=== PATIENT | male | born 1960 | race Caucasian/White ===

== ENCOUNTER 2018-04-23 15:13 | Outpatient (CLI) | payer BC ==
[~2018-04-23 15:13] MED LIST: ESCI20TA29 PO; PANT40TA39 PO
[2018-04-23 15:50] LABS: BASOPHILS % (AUTO) 0.5 % (0-1); EOSINOPHILS # (AUTO) 0.2 X10'3 (0-0.9); EOSINOPHILS % (AUTO) 2.9 % (0-6); HEMATOCRIT 48.3 % (42.0-52.0); HEMOGLOBIN 15.9 g/dl (14.0-17.9); LYMPHOCYTES # (AUTO) 1.1 X10'3 (1.1-4.8); LYMPHOCYTES % (AUTO) 18.9 % (21-51); MEAN CORPUSCULAR HEMOGLOBIN 31.1 PG (27.0-31.0); MEAN CORPUSCULAR HGB CONC 32.9 % (33.0-36.5); MEAN CORPUSCULAR VOLUME 94.5 FL (78-98); MEAN PLATELET VOLUME 7.1 FL (7.4-10.4); MONOCYTES # (AUTO) 0.4 X10'3 (0-0.9); MONOCYTES % (AUTO) 7.2 % (2-12); NEUTROPHILS % (AUTO) 70.5 % (42-75); PLATELET COUNT 259 X10'3 (140-440); RED BLOOD COUNT 5.11 X10'6 (4.70-6.10); RED CELL DISTRIBUTION WIDTH 13.9 % (11.5-14.5); WHITE BLOOD COUNT 5.7 X10'3 (4.5-11.0)
[2018-04-23 16:05] LABS: ALANINE AMINOTRANSFERASE 53 U/L (12-78); ALBUMIN 3.9 G/DL (3.4-5.0); ALKALINE PHOSPHATASE 67 IU/L (46-116); ANION GAP 8 (8-16); ASPARTATE AMINO TRANSFERASE 31 U/L (10-37); BILIRUBIN,TOTAL 0.5 MG/DL (0.1-1.0); BLOOD UREA NITROGEN 15 MG/DL (7-18); BUN/CREATININE RATIO 16.9 (5.4-32.0); CALCIUM 9.7 MG/DL (8.5-10.1); CHLORIDE 104 MMOL/L (99-107); CREATININE 0.89 MG/DL (0.60-1.10); GLUCOSE 91 MG/DL (70-104); POTASSIUM 4.5 MMOL/L (3.5-5.1); SODIUM 140 MMOL/L (135-145); TOTAL CARBON DIOXIDE 28.1 MMOL/L (24-32); TOTAL PROTEIN 7.7 G/DL (6.4-8.2); eGFR 88 ML/MIN
[2018-04-23 16:33] LABS: PARTIAL THROMBOPLASTIN TIME 30 SECONDS (22-32); PROTHROMBIN TIME 10.6 SECONDS (9.0-12.0)
== END 2018-04-23 23:59 | disposition home or self-care (01) ==
LOC: LAB 15:13
PROVIDERS: ATTEND Otolaryngology
DX: D69.1 Qualitative platelet defects (principal); I10 Essential (primary) hypertension; Z87.891 Personal history of nicotine dependence; Z72.89 Other problems related to lifestyle; Z98.890 Other specified postprocedural states; Z85.818 Personal history of malignant neoplasm of other sites of lip, oral cavity, and pharynx
CPT/HCPCS: 36415; 80053; 85025; 85576; 85610; 85730

== ENCOUNTER 2022-04-22 07:48 | Day surgery (SDC) | payer BC ==
[2022-04-22] VITALS (9 sets, daily range): BP systolic 96–114; BP diastolic 40–64
[~2022-04-22] VITALS: Ht 172.7 cm; Wt 93.8 kg
[2022-04-22] MEDS ORDERED: ceFAZolin inj. 2,000 MG in dextrose 5%-water 100 ML IV ONE (08:16)
[2022-04-22] MEDS ORDERED: vancomycin 1,500 MG in NS 300ml IV soln IV ONE (08:16)
[2022-04-22] MEDS ORDERED: NITR0.4T51 SL (08:36)
[2022-04-22] MEDS ORDERED: FLO0.4C PO (08:36)
[2022-04-22] MEDS ORDERED: LEVO75TA7 PO (08:36)
[2022-04-22] MEDS ORDERED: CLOP75TA34 PO (08:36)
[2022-04-22] MEDS ORDERED: SERT-434 PO (08:36)
[2022-04-22] MEDS ORDERED: LORA-269 PO (08:36)
[2022-04-22] MEDS ORDERED: ATOR20TA66 PO (08:36)
[2022-04-22] MEDS ORDERED: [UNRECOGNIZED DRUG - OTHER] PO (08:36)
[2022-04-22 08:59] LABS: BASOPHILS # (AUTO) 0.1 X10'3 (0-0.2); BASOPHILS % (AUTO) 1.1 % (0-1); EOSINOPHILS # (AUTO) 0.3 X10'3 (0-0.9); EOSINOPHILS % (AUTO) 4.8 % (0-6); HEMATOCRIT 46.5 % (42.0-52.0); HEMOGLOBIN 15.5 g/dl (14.0-17.9); LYMPHOCYTES # (AUTO) 1.1 X10'3 (1.1-4.8); LYMPHOCYTES % (AUTO) 15.9 % (21-51); MEAN CORPUSCULAR HEMOGLOBIN 30.3 PG (27.0-31.0); MEAN CORPUSCULAR HGB CONC 33.3 g/dL (33.0-36.5); MEAN CORPUSCULAR VOLUME 91.1 FL (78-98); MEAN PLATELET VOLUME 7.7 FL (7.4-10.4); MONOCYTES # (AUTO) 0.6 X10'3 (0-0.9); NEUTROPHILS # (AUTO) 4.8 X10'3 (1.8-7.7); NEUTROPHILS % (AUTO) 69.2 % (42-75); PLATELET COUNT 150 X10'3 (140-440); RED CELL DISTRIBUTION WIDTH 13.6 % (11.5-14.5); WHITE BLOOD COUNT 6.9 X10'3 (4.5-11.0)
[2022-04-22 09:58] LABS: ALBUMIN 3.9 G/DL (3.4-5.0); ANION GAP 10 (8-16); BLOOD UREA NITROGEN 12 MG/DL (7-18); BUN/CREATININE RATIO 14.8 (5.4-32.0); CALCIUM 8.7 MG/DL (8.5-10.1); CHLORIDE 105 MMOL/L (99-107); CREATININE 0.81 MG/DL (0.60-1.10); GLUCOSE 118 MG/DL (70-104); MAGNESIUM 1.9 MG/DL (1.5-2.4); POTASSIUM 3.6 MMOL/L (3.5-5.1); SODIUM 141 MMOL/L (135-145); TOTAL CARBON DIOXIDE 26.1 MMOL/L (24-32); eGFR > 90 ML/MIN
[2022-04-22] MEDS ORDERED: LIDOcaine 2 gm/250ml D5W 250 ML IV ONE (11:21)
[2022-04-22] MEDS ORDERED: LIDOcaine 2% (20 mg/ml) 5ml cardiac syringe ONE (11:21)
[2022-04-22] MEDS ORDERED: LIDOCAINE 2%/EPI 1:100,000 inj. Multi-dose 20 ML VIAL ONE (11:30)
[2022-04-22] MEDS ORDERED: fentaNYL/PF 50MCG/1 ML 2ML syringe ONE ×2 (11:36→12:09)
[2022-04-22] MEDS ORDERED: midazolam 1 mg/ML 2ml injection ONE ×2 (11:36→12:09)
[2022-04-22] MEDS ORDERED: proCHLORperazine 10 MG/2 ml inj ONE (11:36)
[2022-04-22] MEDS ORDERED: HYDROcodone/acetaminophen 10/325mg tab PO PRN (13:25)
[2022-04-22] MEDS ORDERED: normal saline 1000ml 1,000 ML IV SCH (13:25)
[2022-04-22] MEDS ORDERED: HYDROcodone/acetaminophen 5mg/325mg tablet PO PRN (13:25)
== END 2022-04-22 15:00 | disposition home or self-care (01) ==
LOC: SSTAY O 07:48
PROVIDERS: ATTEND Internal Medicine Cardiovascular Disease
DX: I49.5 Sick sinus syndrome (principal); Z08 Encounter for follow-up examination after completed treatment for malignant neoplasm; E78.5 Hyperlipidemia, unspecified; I10 Essential (primary) hypertension; F41.8 Other specified anxiety disorders; Z98.890 Other specified postprocedural states; Z79.899 Other long term (current) drug therapy; Z85.89 Personal history of malignant neoplasm of other organs and systems; Z85.72 Personal history of non-Hodgkin lymphomas
CPT/HCPCS: 33208; 36415; 71045; 80048; 83735; 85025; 85610; 93005; 99152; 99153; C1785; C1894; C1898; J0780; J2001; J2250; J3010; J3370; J3490; J7030; J7040; 33217; A4615; A6258

== ENCOUNTER 2022-10-25 12:06 | Day surgery (SDC) | payer BC ==
[~2022-10-25] VITALS: Ht 172.7 cm; Wt 85.3 kg
[~2022-10-25 12:06] MED LIST changes: +ATOR20TA66 PO; +CLOP75TA34 PO; -ESCI20TA29 PO; +FLO0.4C PO; +LEVO75TA7 PO; +LORA-269 PO; +NITR0.4T51 SL; +SERT-434 PO; +[UNRECOGNIZED DRUG - OTHER] PO
[2022-10-25] MEDS ORDERED: normal saline 1000ml 1,000 ML IV PRN (12:25)
[2022-10-25 12:33] VITALS: BP 136/70
[2022-10-25] MEDS ORDERED: PANT40TA54 PO (13:38)
[2022-10-25] MEDS ORDERED: CELE100C98 PO (13:38)
[2022-10-25] MEDS ORDERED: midazolam 1 mg/ML 2ml injection ONE (14:02)
[2022-10-25] MEDS ORDERED: heparin sodium, porcine/PF 100unit/ml 5ML syringe ONE (14:02)
[2022-10-25] MEDS ORDERED: fentaNYL/PF 50MCG/1 ML 2ML syringe ONE (14:02)
[2022-10-25 15:09] VITALS: BP 107/49
[2022-10-25 15:22] VITALS: BP 108/69
[2022-10-25 15:38] VITALS: BP 128/56
== END 2022-10-25 16:00 | disposition home or self-care (01) ==
LOC: SSTAY O 12:06
PROVIDERS: ATTEND Radiology Vascular & Interventional Radiology
DX: C83.35 Diffuse large B-cell lymphoma, lymph nodes of inguinal region and lower limb (principal); C13.8 Malignant neoplasm of overlapping sites of hypopharynx; F32.A Depression, unspecified; Z79.899 Other long term (current) drug therapy; Z79.01 Long term (current) use of anticoagulants; Z87.891 Personal history of nicotine dependence; F12.90 Cannabis use, unspecified, uncomplicated; Z86.73 Personal history of transient ischemic attack (TIA), and cerebral infarction without residual deficits; Z88.0 Allergy status to penicillin
CPT/HCPCS: 36561; 76937; 77001; 99152; C1788; J1642; J2250; J3010; J7030; 99153; A4620; C1894